=== PATIENT | male | born 1965 | race Caucasian/White ===

== ENCOUNTER 2018-07-11 07:24 | Emergency (ER) | payer BC ==
--- NOTE | 2018-07-11 08:45 | EDM.PDOC ---
ED HPI GENERAL MEDICAL PROBLEM - General Chief Complaint: General Stated Complaint: DEHYDRATED / DIZZY / WEAK Time Seen by Provider: 07/11/18 08:37 Source of Information: Reports: Patient, RN Notes Reviewed History Limitations: Reports: No Limitations - History of Present Illness INITIAL COMMENTS - FREE TEXT/NARRATIVE: 53-year-old gentleman presents to the emergency department with complaint of weakness dizziness dehydration, he was at work yesterday for his job he wears a wet suit in a chemical environment for protection the suit causes him to sweat profusely humidity was high last night he tried to stay on top of it with drinking fluids but feels very weak and run down this morning. - Related Data Allergies Allergy/AdvReac Type Severity Reaction Status Date / Time shellfish derived Allergy Mild Rash Verified 07/11/18 07:38 Home Meds: Home Meds Insulin Glargine,Hum.Rec.Anlog [Lantus Solostar] 40 units SUBCUT DAILY 10/23/15 [History] Lisinopril [Prinivil] 1 tab PO BID 10/23/15 [History] amLODIPine [Norvasc] 5 mg PO DAILY 10/23/15 [History] atorvaSTATin [Lipitor] 1 tab PO DAILY 10/23/15 [History] metFORMIN [Glucophage] 1,000 mg PO BIDMEALS 07/14/16 [History] Liraglutide [Victoza 3-Jun] 0.5 mg SUBCUT DAILY 07/11/18 [History] Past Medical History Cardiovascular History: Reports: High Cholesterol, Hypertension Gastrointestinal History: Reports: Pancreatitis, Other (See Below) Other Gastrointestinal History: pancreatitis, pancreatic cyst Endocrine/Metabolic History: Reports: Diabetes, Type II - Infectious Disease History Infectious Disease History: Reports: Chicken Pox, Measles - Past Surgical History Cardiovascular Surgical History: Reports: None GI Surgical History: Reports: Other (See Below) Other GI Surgeries/Procedures: stents in pancreas, now removed. Social & Family History - Tobacco Use Smoking Status *Q: Never Smoker - Recreational Drug Use Recreational Drug Use: No ED ROS GENERAL - Review of Systems Review Of Systems: See Below Constitutional: Reports: Weakness, Diaphoresis. Denies: Fever, Chills HEENT: Reports: No Symptoms Respiratory: Reports: No Symptoms Cardiovascular: Reports: No Symptoms GI/Abdominal: Reports: No Symptoms : Reports: No Symptoms Musculoskeletal: Reports: No Symptoms Skin: Reports: No Symptoms Neurological: Reports: No Symptoms ED EXAM, GENERAL - Physical Exam Exam: See Below Free Text/Narrative:: General: Male, not in any distress, alert and oriented x3 HEENT: head is atraumatic normocephalic, eyes pupils equal round reactive to light, sclera clear no conjunctivitis appreciated. Ears tympanic membranes clear and brooks landmarks and light reflex are present bilaterally canals are clear. Nose no septal deviation, nares are clear, no blood present. Mouth mucosa is moist and pink no erythema or exudate noted in soft palate, tongue is midline uvula is midline, dentition is intact. Neck: Supple no thyromegaly no tracheal deviation. Nodes: Cervical nodes subclavicular nodes nontender no palpable lymphadenopathy noted. Lungs: clear to auscultation bilaterally with symmetrical respirations, no adventitious noise appreciated. CV: Regular rate and rhythm S1 and S2 appreciated no murmurs rubs or gallops noted. Abdomen: Soft, nontender, no palpable masses or organomegaly appreciated, no distention no guarding bowel sounds are present, [scars ]. Course - Vital Signs Last Recorded V/S: Last Vital Signs Temp 96.6 F 07/11/18 07:38 Pulse 60 07/11/18 09:30 Resp 12 07/11/18 09:30 BP 140/75 07/11/18 09:30 Pulse Ox 98 07/11/18 09:30 - Orders/Labs/Meds Orders: Active Orders 24 hr Category Date Time Status Peripheral IV Care [RC] . DIRECTED Care 07/11/18 08:43 Active CULTURE URINE [RM] Urgent Lab 07/11/18 09:29 Received UA W/MICROSCOPIC [URIN] Urgent Lab 07/11/18 08:43 Ordered Sodium Chloride 0.9% [Saline Flush] Med 07/11/18 08:43 Active 10 ml FLUSH ASDIRECTED PRN Peripheral IV Insertion Adult [OM.PC] Urgent Oth 07/11/18 08:43 Ordered Medication Orders Sodium Chloride (Saline Flush) 10 ml FLUSH ASDIRECTED PRN PRN Reason: Keep Vein Open Last Admin: 07/11/18 09:01 Dose: 10 ml Labs: Laboratory Tests 07/11/18 07/11/18 07/11/18 Range/Units 08:43 08:50 08:50 WBC 6.4 (4.5-11.0) K/uL RBC 4.78 (4.30-5.90) M/uL Hgb 13.9 (12.0-15.0) g/dL Hct 41.3 (40.0-54.0) % MCV 86 (80-98) fL MCH 29 (27-31) pg MCHC 34 (32-36) % Plt Count 181 (150-400) K/uL Neut % (Auto) 61 (36-66) % Lymph % (Auto) 26 (24-44) % [place] % (Auto) 9 H (2-6) % Eos % (Auto) 4 (2-4) % Baso % (Auto) 1 (0-1) % Sodium 141 (140-148) mmol/L Potassium 3.6 (3.6-5.2) mmol/L Chloride 106 (100-108) mmol/L Carbon Dioxide 27 (21-32) mmol/L Anion Gap 8.5 (5.0-14.0) mmol/L BUN 12 (7-18) mg/dL Creatinine 0.9 (0.8-1.3) mg/dL Est Cr Clr Drug Dosing 107.82 mL/min Estimated GFR (MDRD) > 60 (>60) Glucose 121 H (74-106) mg/dL Calcium 8.9 (8.5-10.1) mg/dL Urine Color [place] Urine Appearance Slightly cloudy Urine pH 5.0 (4.5-8.0) Ur Specific [place] 1.025 (1.008-1.030) Urine Protein Trace (NEGATIVE) mg/dL Urine Glucose (UA) Normal (NEGATIVE) mg/dL Urine Ketones Negative (NEGATIVE) mg/dL Urine Occult Blood Negative (NEGATIVE) Urine Nitrite Negative (NEGAITVE) Urine Bilirubin Negative (NEGATIVE) Urine Urobilinogen 1 (NORMAL) mg/dL Ur Leukocyte Esterase Large (NEGATIVE) Urine RBC 0-5 (0-5) Urine WBC 10-20 H (0-5) Ur Epithelial Cells Not seen Amorphous Sediment Few Urine Bacteria Few Urine Mucus Not seen Meds: Medications Generic Name Dose Route Start Last Admin Trade Name Freq PRN Reason Stop Dose Admin Sodium Chloride 10 ml 07/11/18 08:43 07/11/18 09:01 Saline Flush FLUSH 10 ml ASDIRECTED PRN Administration Keep Vein Open Discontinued Medications Generic Name Dose Route Start Last Admin Trade Name Gabriel PRN Reason Stop Dose Admin Lactated Ringer's 1,000 mls @ 999 mls/hr 07/11/18 08:50 07/11/18 09:00 Ringers, Lactated IV 07/11/18 09:50 999 mls/hr BOLUS ONE Administration Departure - Departure Time of Disposition: 10:21 Disposition: Home, Self-Care 01 Condition: Good Clinical Impression: Dehydration - Discharge Information Referrals: Warren De Jesus NP [Primary Care Provider] - Forms: ED Department Discharge, ED Return to Work/School Form Additional Instructions: Please followup with your primary care provider in 3-5 days if not better, please call return to the emergency department with worsening of symptoms. - My Orders Last 24 Hours: My Active Orders 07/11/18 08:43 Peripheral IV Care [RC] . DIRECTED UA W/MICROSCOPIC [URIN] Urgent Sodium Chloride 0.9% [Saline Flush] 10 ml FLUSH ASDIRECTED PRN Peripheral IV Insertion Adult [OM.PC] Urgent 07/11/18 09:29 CULTURE URINE [RM] Urgent - Assessment/Plan Last 24 Hours: My Active Orders 07/11/18 08:43 Peripheral IV Care [RC] . DIRECTED UA W/MICROSCOPIC [URIN] Urgent Sodium Chloride 0.9% [Saline Flush] 10 ml FLUSH ASDIRECTED PRN Peripheral IV Insertion Adult [OM.PC] Urgent 07/11/18 09:29 CULTURE URINE [RM] Urgent Plan: Assessment Acuity = acute Site and laterality = dehydration Etiology = secondary to work environment Manifestations = dizzy, weakness improved Location of injury = work Lab values = CBC, BMP unremarkable urinalysis does reveal specific gravity of 1.025 consistent with intravascular volume depletion Plan PA good improvement with 1 L of fluids plan to discharge home follow-up primary care as needed This note was dictated using [employer] voice recognition software please call with any questions on syntax or grammar.
[2018-07-11] MEDS: Lactated Ringers 1,000 ML IV ONE (09:00)
[2018-07-11] MEDS: Sodium Chloride 0.9% 10 ML Syringe FLUSH PRN (09:01)
[2018-07-11 09:45] VITALS: BP 140/75
== END 2018-07-11 10:40 | disposition home or self-care (01) ==
LOC: JP.ED 07:24
DX: E86.0 Dehydration (principal); I10 Essential (primary) hypertension; E11.9 Type 2 diabetes mellitus without complications; Z91.013 Allergy to seafood; Z79.4 Long term (current) use of insulin; Z79.899 Other long term (current) drug therapy
CPT/HCPCS: 36415; 80048; 81001; 85025; 87086; 96360; 99285; J7050; J7120